=== PATIENT | male | born 1970 | race Caucasian/White ===

== ENCOUNTER 2018-08-03 08:36 | Day surgery (SDC) | payer BC, OTHER ==
[2018-08-01 10:07] VITALS: BMI 22.9
[~2018-08-03 08:36] MED LIST: LACTATED RINGERS 1,000 ML IV SCH; LIDOCAINE 1% 20 ML VIAL (10MG/ML) FOR IV START INTRADERMA PRN
[2018-08-03 09:40] VITALS: RESP 16; TEMP 97.1
[2018-08-03] MEDS ORDERED: GLYCOPYRROLATE 0.2 MG/ML 2 ML VIAL ONE (09:44)
[2018-08-03] MEDS ORDERED: PROPOFOL 10 MG/ML 20 ML VIAL IV ONE (09:44)
[2018-08-03] MEDS ORDERED: LIDOCAINE 1% INJ 10MG/ML (20 ML MDV) ONE (09:44)
--- NOTE | 2018-08-03 10:21 | P.PCN ---
Date of Procedure: 08/03/18 Procedure(s) Performed: Procedures: 1. Esophagogastroduodenoscopy and biopsy. 2. Total colonoscopy. Preoperative diagnosis: History of GI bleeding. Postoperative diagnosis: 1. Very small sliding hiatal hernia with no definite esophagitis or complicated reflux disease. 2. Mild antral gastritis. 3. Biopsies obtained from the antrum and esophagus. 4. Low-grade internal hemorrhoids not bleeding at the time of the exam, otherwise, exam of the colon to the cecum within normal limits. Preparation: HalfLytely prep. Sedation: Was provided by anesthesia. Brief clinical history: The patient is a 48-year-old male who is scheduled for this evaluation because of history of rectal bleeding that he experienced for several consecutive days around 3 weeks ago. The patient had no abdominal complaints at that time or change in bowel habits or rectal pain. No upper GI complaints or anemia. The patient was referred for upper endoscopy and colonoscopy at this time. He had no bleeding since then and there is no family history of colon cancer. This would be his first upper endoscopy and colonoscopy. Procedure: With the patient on his left lateral decubitus position and after informed consent and adequate sedation, I passed the Olympus-GIF 192 video upper endoscope through the cricopharyngeus down the esophagus. There was a very small sliding hiatal hernia and faint possible linear erosion in the distal esophagus but there was no ulcers, strictures or Garnett's esophagus. The endoscope was then passed into the stomach which was insufflated with air and inspected in detail including the retroflex view in the cardia. There was some mottling and erythema in the antrum but no ulcers or erosions. Pyloric channel, duodenal bulb, post bulbar area and descending duodenum appeared within normal limits. I obtained biopsies from the antrum and esophagus then the endoscope was withdrawn and I proceeded with the colonoscopy. Perianal area did not show any fissures or fistulas. There were no masses felt on digital rectal examination. The Olympus CFH 190L video colonoscope was then inserted in the rectum in the usual fashion and advanced to the cecum. The mucosa appeared healthy. No polyps or tumors were seen or any obvious diverticular disease. I retroflexed the endoscope in the rectum before the endoscope was withdrawn. Low-grade internal hemorrhoids were noted with no evidence of bleeding. The patient tolerated the procedure well. Plan: The patient was reassured. Will await biopsy results. Discussed dietary measures and local care for hemorrhoids. Further plans based on his course. In the absence of family history of colon cancer of finding of polyps today I recommended repeat screening colonoscopy in 10 years. He will follow up with you as planned.
[2018-08-03 10:44] VITALS: BP 118/79; PULSE 78
== END 2018-08-03 11:10 | disposition home or self-care (01) ==
LOC: ORWHC2ENDO 08:36
DX: K64.8 Other hemorrhoids (principal); K29.70 Gastritis, unspecified, without bleeding; K44.9 Diaphragmatic hernia without obstruction or gangrene; F17.210 Nicotine dependence, cigarettes, uncomplicated; Z96.652 Presence of left artificial knee joint; Z88.0 Allergy status to penicillin
CPT/HCPCS: 88305; 45378; 43239; J2001; J2704

== ENCOUNTER → 2020-04-09 | Outpatient (CLI) | payer BC ==
--- NOTE | 2020-04-10 08:25 | CT ---
EXAMINATION TYPE: CT abdomen pelvis w con DATE OF EXAM: 04/09/2020 COMPARISON: None. HISTORY: hematuria, groin pain, urinary frequency. CT DLP: 731.5 mGycm, Automated Exposure Control for Dose Reduction was Utilized. CONTRAST: CT scan of the abdomen and pelvis is performed with oral and with IV Contrast, patient injected with 100 mL of Isovue 300. FINDINGS: LUNG BASES: There is 11 x 7 mm posterior right basilar nodule axial image 11. Dependent atelectasis. LIVER/GB: No significant abnormality is appreciated. PANCREAS: No significant abnormality is seen. SPLEEN: No significant abnormality is seen. ADRENALS: No significant abnormality is seen. KIDNEYS: Symmetric cortical medullary uptake and excretion without hydronephrosis seen bilaterally. A symmetric mild to moderate left-sided perinephric fluid which is nonspecific finding. Asymmetric left -sided submucosal enhancement and mild areas of hydroureter, for reference coronal image 55 distal ur eter. No obstructing calculus clearly seen. Cannot exclude small eccentric thickening or soft tissue nodule near UVJ axial image 68 less prominent on sagittal images of the sinuses near prostate junctio n. Scattered pelvic phleboliths. Accessory right renal artery noted. BOWEL: Oral contrast reaches the level of the proximal transverse colon. No suspicious small or large bowel dilatation. PROSTATE/SEMINAL VESICLES: Fullness to the seminal vesicles bilaterally. Prostate normal in size. Sca ttered bilateral pelvic phleboliths noted. Central punctate 2 mm calcification in prostate axial imag e 75 LYMPH NODES: No greater than 1cm abdominal or pelvic lymph nodes are appreciated. OSSEOUS STRUCTURES: Bilateral pars defect L5 level. Slight grade 1 anterolisthesis L5 on S1. Mild hei ght loss or anterior chronic wedging L1 level with mild height loss along superior endplate. Moderate anterior spurring T12-L1 level. OTHER: [id number] calcified plaque of iliac arterial branches in the pelvis. IMPRESSION: Asymmetric [id number] left perinephric fluid is nonspecific. No areas of diminished enhancement to suggest acute pyelonephritis. Asymmetric left-sided mild hydroureter without hydronep hrosis with some suspicious mucosal enhancement. Given patient's symptoms would like to exclude dista l partial obstructing mass or neoplasm near the UVJ. Central 2 mm calcification prostate somewhat unu sual for granular calcification, would still favor glanular calcification over urethral calcification . Advise urology referral to consider direct visualization/cystoscopy.
== END | disposition home or self-care (01) ==
LOC: RADCTMAIN 17:13
PROVIDERS: ATTEND Family Medicine
DX: N13.4 Hydroureter (principal); N42.89 Other specified disorders of prostate; Z88.0 Allergy status to penicillin; Z91.030 Bee allergy status
CPT/HCPCS: 74177; Q9967